=== PATIENT | female | born 1955 | race Caucasian/White ===

== ENCOUNTER 2017-01-20 14:43 | Day surgery (SDC) | payer OTHER ==
[~2017-01-20] VITALS: Ht 172.7 cm; Wt 111.3 kg
[2017-01-20] VITALS (13 sets, daily range): BP systolic 134–162; BP diastolic 65–84; PULSE 64–84; RESP 6–16; Ht 172.7 cm; Wt 111.3 kg
[~2017-01-20 14:43] MED LIST: SOD CHLORIDE 0.9% 1,000 ML IV SCH
[2017-01-20 16:22] LABS: ADD SCAN DIFF NO
[2017-01-20 16:42] LABS: INR 0.91; PROTIME 12.2 Sec (12.2-14.2)
[2017-01-20 16:50] LABS: BASOPHILS % 0.5 % (0.0-2.0); EOSINOPHILS # 0.1 10^3/ul (0.0-0.5); EOSINOPHILS % 1.6 % (0.0-7.0); HEMATOCRIT 37.8 % (37.0-47.0); HEMOGLOBIN 12.1 g/dl (12.0-16.0); LYMPHOCYTES # 1.8 10^3/ul (0.8-2.9); LYMPHOCYTES % 22.4 % (15.0-51.0); MEAN CORPUSCULAR HEMOGLOBIN 28.5 pg (29.0-33.0); MEAN CORPUSCULAR VOLUME 88.9 fl (82.0-101.0); MEAN PLATELET VOLUME 9.4 fl (7.4-10.4); MONOCYTE # 0.5 10^3/ul (0.3-0.9); MONOCYTES % 5.9 % (0.0-11.0); NEUTROPHIL # 5.6 10^3/ul (1.6-7.5); NEUTROPHILS % 69.4 % (39.0-77.0); PLATELET COUNT 350 10^3/UL (140-415); RED BLOOD COUNT 4.25 10^6/ul (4.20-5.40); RED CELL DISTRIBUTION WIDTH 14.6 % (11.5-14.5); WHITE BLOOD COUNT 8.1 10^3/ul (4.8-10.8)
[2017-01-20 16:51] LABS: CALCIUM 9.5 mg/dl (8.4-10.2); CREATININE 0.67 mg/dl (0.44-1.00); POTASSIUM 3.9 mmol/L (3.5-5.1)
[2017-01-20] MEDS ORDERED: LISI40TA9 PO (16:54)
[2017-01-20] MEDS ORDERED: CETI5TAB20 PO (16:54)
[2017-01-20] MEDS ORDERED: ESCI10TA PO (16:54)
--- NOTE | 2017-01-20 17:05 | RADRPT ---
PROCEDURE: XR Chest. CLINICAL INDICATION: Preoperative for scalp mass. TECHNIQUE: Single frontal view. COMPARISON: None. FINDINGS: The lungs are clear. The heart size is normal. There is calcification in the aorta consistent with atherosclerosis. There is no pleural effusion. There is no pneumothorax. IMPRESSION: 1. Atherosclerosis. 2. Clear lungs. RPTAT: QQ .Elliott Flores MD, MD Date Time Electronically viewed and signed by .Elliott Flores MD, MD on 01/20/2017 17:04 .R/
[2017-01-20 17:09] LABS: PARTIAL THROMBOPLASTIN TIME 24.6 Sec (25.0-35.0)
--- NOTE | 2017-01-20 18:47 | HPN ---
Date/Time of Note Date/Time of Note DATE: 01/20/17 TIME: 18:47 Interval H&P Admission Note Pt. seen H&P reviewed: No system changes JACKSON TOURE MD Jan 20, 2017 18:47
[2017-01-20] MEDS ORDERED: LIDOCAINE 1%/EPI 30 ML INJ ONE (18:54)
[2017-01-20] MEDS ORDERED: BUPIVACAINE 0.25% (MPF) 30 ML INJ ONE (18:54)
[2017-01-20] MEDS ORDERED: PROPOFOL 20 ML ONE (19:04)
[2017-01-20] MEDS ORDERED: MIDAZOLAM 1 MG/ML 2 ML INJ ONE (19:04)
[2017-01-20] MEDS ORDERED: FENTAnyl 50 MCG/ML VIAL ONE (19:04)
[2017-01-20] MEDS ORDERED: LIDOCAINE 2% (SDV) 5 ML INJ ONE (19:04)
[2017-01-20] MEDS ORDERED: ONDANSETRON 4 MG INJ ONE (19:21)
[2017-01-20] MEDS ORDERED: CLINDAMYCIN 900 MG/D5W (PMX) 50 ML IVPB ONE (19:21)
[2017-01-20] MEDS ORDERED: DEXAMETHASONE 4 MG/ML 1 ML INJ ONE (19:22)
[2017-01-20] MEDS ORDERED: METOCLOPRAMIDE 10 MG INJ ONE (19:22)
[2017-01-20] MEDS ORDERED: BACITRACIN 0.9 GM OINT ONE (19:48)
[2017-01-20] MEDS ORDERED: HYDROmorphONE 2 MG/ML SYG ONE (19:58)
[2017-01-20] MEDS ORDERED: MEPERIDINE 25 MG INJ IV PRN (20:00)
[2017-01-20] MEDS ORDERED: OXYCODONE/ACETAMINOPHEN (5/325) TAB PO PRN (20:00)
[2017-01-20] MEDS ORDERED: PROCHLORPERAZINE 10 MG INJ IV PRN (20:00)
[2017-01-20] MEDS ORDERED: DIPHENHYDRAMINE 50 MG INJ IV PRN (20:00)
[2017-01-20] MEDS ORDERED: FENTAnyl 50 MCG/ML VIAL IV PRN (20:00)
[2017-01-20] MEDS ORDERED: ONDANSETRON 4 MG INJ IV PRN ×2 (20:00→21:00)
[2017-01-20] MEDS ORDERED: HYDROmorphONE (0.2 MG/ML) 10ML SYG IV PRN (20:00)
[2017-01-20] MEDS ORDERED: KETOROLAC 30 MG INJ IV PRN (21:00)
[2017-01-20] MEDS ORDERED: HYDROCODONE/APAP (5/325) TAB PO PRN ×2 (21:00)
[2017-01-20] MEDS ORDERED: IBUPROFEN 600 MG TAB PO PRN (21:00)
[2017-01-20] MEDS ORDERED: LABETALOL HCL 20MG INJ IV PRN (21:30)
[2017-01-20] MEDS ORDERED: hydrALAzine 20 MG INJ IV PRN (21:30)
--- NOTE | 2017-01-21 03:29 | OPR ---
DATE OF OPERATION: 01/20/2017 PREOPERATIVE DIAGNOSES: 1. Frontal scalp mass x2. 2. Left shoulder mass. POSTOPERATIVE DIAGNOSES: 1. Scalp mass x2. 2. Intramuscular lipoma of left shoulder, greater than 5 cm. OPERATION PERFORMED: 1. Excision of scalp mass x2. 2. Excision of left shoulder intramuscular lipoma greater than 5 cm. SURGEON: Jackson Solis MD PATIENT SAFETY MANAGER: None. ANESTHESIA: General LMA. ANESTHESIOLOGIST: Dr. Holman FLUIDS: Crystalloid. ESTIMATED BLOOD LOSS: Minimal. SPECIMEN: 1. Scalp mass x2. 2. Left shoulder mass. INDICATIONS FOR SURGERY: The patient is a 61-year-old female who presented to the office complaining of 2 soft tissue masses of scalp and left shoulder mass. These have all been present for several years and have been enlarging and causing increasing pain and discomfort. The patient was scheduled for elective excision for symptom relief and definitive pathological diagnosis. All risks and benefits of the procedure including but not limited to wound infection, excessive bleeding, postoperative seroma/hematoma formation, neurovascular injury, mass recurrence, etc. were all explained to the patient in full detail. She fully understood and wished to proceed with the procedure. Informed consent was therefore obtained. The patient was brought to the operating room and placed supine on the operating table. Bilateral sequential compression devices were placed on both lower extremities, and a dose of broad spectrum perioperative intravenous antibiotics was given. After the induction of smooth general anesthesia, the patient's scalp and left shoulder were prepped and draped in standard surgical fashion. All mass sites were preoperatively marked and confirmed with the patient in the holding area. After performance of the surgical time-out, attention was turned to the scalp masses that were located in the left frontal area. Both masses were excised in the exact same way as follows: The skin was anesthetized with a mixture of 0.25% Marcaine and 1% lidocaine with epinephrine. An incision was then made over the mass using a 15 blade scalpel. There was extrusion of sebaceous material from both masses. The masses were dissected circumferentially from the surrounding tissues using Metzenbaum scissors and then transected at their bases and passed off the field as specimen. Hemostasis was then inspected for and noted to be total. Further local anesthesia was applied around the skin at the incision sites, and both incisions were reapproximated using interrupted 3-0 nylon sutures. Bacitracin ointment was then applied after the incisions were cleaned. Attention was then turned toward the left shoulder mass. The skin overlying the mass with anesthetized, and an incision was made using a 10 blade scalpel over the area. The incision was carried down through the skin and subcutaneous tissues to the level of the muscular fascia which was incised. A large intramuscular lipoma was identified. It was intertwined with the deltoid muscle. It was gently dissected free. There was a lot of chronic scarring in the area. It was then transected at its base and passed off the field as specimen. Hemostasis was then inspected for and noted to be adequate. The wound was then reapproximated using interrupted 3-0 Vicryl sutures for the dermal layer and a running 4-0 Monocryl suture in subcuticular fashion for the skin. The incision was cleaned , and Dermabond was applied. The patient was then awoken from anesthesia and transported to the recovery room in stable condition. All counts were correct at the end of the case x2. Dictated By: JACKSON ERIC/DAVIS Conf#: [id number] DID#: [id number] MARK ANTHONY
== END 2017-01-20 23:00 | disposition home or self-care (01) ==
LOC: SDS 14:43
PROVIDERS: ATTEND Surgery
DX: D17.22 Benign lipomatous neoplasm of skin and subcutaneous tissue of left arm (principal); L72.11 Pilar cyst; L72.0 Epidermal cyst; I10 Essential (primary) hypertension; E66.9 Obesity, unspecified; Z68.37 Body mass index [BMI] 37.0-37.9, adult
CPT/HCPCS: 11406; 11426; 71010; 80048; 85025; 85610; 85730; 88307; J1100; J1170; J2250; J2405; J2765; J3010; Z7512; Z7610